=== PATIENT | male | born 1970 | race Caucasian/White ===

== ENCOUNTER 2018-11-21 14:38 | Emergency (ER) | payer MEDICAID ==
[~2018-11-21] VITALS: Ht 170.2 cm; Wt 99.8 kg
--- NOTE | 2018-11-21 14:44 | NUR ---
PATIENT AMBULATED TO BED 5 AT THIS TIME.
[2018-11-21 14:51] VITALS: BP 133/63
[2018-11-21] MEDS ORDERED: NACL 0.9% 1,000 ML IV ONE (15:21)
[2018-11-21] MEDS ORDERED: ONDANSETRON 4 MG/2 ML VIAL IVP ONE (15:25)
[2018-11-21] MEDS ORDERED: KETOROLAC 30 MG/ML VIAL IVP ONE (15:25)
[2018-11-21 15:26] VITALS: BP 104/76
[2018-11-21 15:54] LABS: BASOPHILS % (AUTO) 0.5 % (0.0-2.0); EOSINOPHILS # (AUTO) 0.1 K/uL (0-0.4); EOSINOPHILS % (AUTO) 2.3 % (0.0-4.0); HEMOGLOBIN 13.2 g/dL (12.0-18.0); LYMPHOCYTES # (AUTO) 2.1 K/uL (2.0-11.5); LYMPHOCYTES % (AUTO) 33.6 % (20.5-51.1); MEAN CORPUSCULAR HEMOGLOBIN 31 pg (27-31); MEAN CORPUSCULAR HGB CONC 34 g/dL (33-37); MEAN CORPUSCULAR VOLUME 91.2 fL (80-94); MONOCYTES # (AUTO) 0.7 K/uL (0.8-1.0); NEUTROPHILS # (AUTO) 3.3 K/uL (1.8-7.7); NEUTROPHILS % (AUTO) 52.6 % (42.2-75.2); PLATELET COUNT (AUTO) 175 K/uL (140-450); RED BLOOD CELL COUNT(AUTO) 4.27 MIL/uL (4.20-6.10); RED CELL DISTRIBUTION WIDTH 13.4 % (11.6-13.7); WHITE BLOOD COUNT (AUTO) 6.3 K/uL (4.8-10.8)
--- NOTE | 2018-11-21 16:02 | NUR ---
PT PRESENTS TO ED WITH C/O ABD PAIN X 2 DAYS. +NAUSEA, +DIARRHEA;DENIES VOMITING OR FEVER. PT STATES PAIN IS 8/10 AT THIS TIME.
[2018-11-21 16:08] LABS: PROTHROMBIN TIME 9.3 secs (10.8-13.4)
[2018-11-21 16:10] LABS: ALBUMIN 3.3 g/dL (3.4-5.0); ANION GAP 10.6 (8-16); CARBON DIOXIDE 30.1 mmol/L (21-32); CREATININE 1.4 mg/dL (0.7-1.3); POTASSIUM 3.7 mmol/L (3.5-5.1); TOTAL BILIRUBIN 0.3 mg/dL (0.0-1.0)
== END 2018-11-21 16:55 | disposition home or self-care (01) ==
LOC: MED 14:38
DX: K43.9 Ventral hernia without obstruction or gangrene (principal); N18.2 Chronic kidney disease, stage 2 (mild); Z90.49 Acquired absence of other specified parts of digestive tract; Z98.890 Other specified postprocedural states
CPT/HCPCS: 36415; 74176; 80053; 81002; 83690; 85025; 85610; 85730; 96374; 96375; 99284; J1885; J2405; J7030

== ENCOUNTER 2019-04-08 08:39 | Emergency (ER) | payer MEDICAID ==
[~2019-04-08] VITALS: Ht 167.6 cm; Wt 97.5 kg
--- NOTE | 2019-04-08 08:49 | NUR ---
Patient ambulated with teady gait to bed 8. Addendum: 04/08/19 at 0853 by MATTHEW Patient ambulated with steady gait to bed 8
[2019-04-08 08:51] VITALS: BP 121/84
--- NOTE | 2019-04-08 09:21 | NUR ---
48/M TO ED WITH NAUSEA/VOMTTING/DIARRHEA OVER THE LAST 2 DAYS AFTER EATING FILET MIGNON. PT REPORTS MULTIPLE EPISODES OF DIARRHEA AND CONSTANT NAUSEA. ABD IS FLAT, SOFT, NON TENDER. BOWEL SOUNDS ACTIVE X 4. HEALED, SURGICAL SCARS NOTED FROM HERNIA REPAIR AND COLOSTOMY BAG. NO DISTRESS NOTED. IN BED FOR MD VIVEROS.
[2019-04-08] MEDS ORDERED: KETOROLAC 30 MG/ML VIAL IVP ONE (09:40)
[2019-04-08] MEDS ORDERED: NACL 0.9% 1,000 ML IV ONE (09:40)
[2019-04-08] MEDS ORDERED: ONDANSETRON 4 MG/2 ML VIAL IVP ONE (09:40)
--- NOTE | 2019-04-08 09:45 | NUR ---
MEDICATED ORDERED. WILL REASSESS.
--- NOTE | 2019-04-08 10:08 | NUR ---
PT REPORTING RELIEF OF NAUSEA POST ZOFRAN ADMINISTRATION. REPORTS PAIN STILL AT 0/10 WITH TORADOL.
[2019-04-08 10:10] LABS: BASOPHILS % (AUTO) 0.3 % (0.0-2.0); EOSINOPHILS # (AUTO) 0.1 K/uL (0-0.4); EOSINOPHILS % (AUTO) 1.6 % (0.0-4.0); HEMATOCRIT 43.6 % (36-52); HEMOGLOBIN 14.5 g/dL (12.0-18.0); LYMPHOCYTES # (AUTO) 1.1 K/uL (2.0-11.5); LYMPHOCYTES % (AUTO) 22.2 % (20.5-51.1); MEAN CORPUSCULAR HEMOGLOBIN 31 pg (27-31); MEAN CORPUSCULAR HGB CONC 33 g/dL (33-37); MONOCYTES # (AUTO) 0.7 K/uL (0.8-1.0); MONOCYTES % (AUTO) 13.2 % (1.7-9.3); NEUTROPHILS # (AUTO) 3.2 K/uL (1.8-7.7); NEUTROPHILS % (AUTO) 62.7 % (42.2-75.2); PLATELET COUNT (AUTO) 165 K/uL (140-450); RED BLOOD CELL COUNT(AUTO) 4.69 MIL/uL (4.20-6.10); RED CELL DISTRIBUTION WIDTH 13.5 % (11.6-13.7); WHITE BLOOD COUNT (AUTO) 5.2 K/uL (4.8-10.8)
[2019-04-08 10:20] LABS: ANION GAP 11.5 (8-16); CARBON DIOXIDE 26.7 mmol/L (21-32); CREATININE 1.4 mg/dL (0.7-1.3); POTASSIUM 4.2 mmol/L (3.5-5.1)
[2019-04-08 10:26] LABS: ALBUMIN 3.6 g/dL (3.4-5.0); TOTAL BILIRUBIN 0.5 mg/dL (0.0-1.0)
[2019-04-08 11:30] VITALS: BP 135/71
--- NOTE | 2019-04-08 11:30 | NUR ---
Patient discharged with v/s stable. Written and verbal after care instructions given and explained. Patient alert, oriented and verbalized understanding of instructions. Ambulatory with steady gait. All questions addressed prior to discharge. ID band removed. Patient advised to follow up with PMD. Rx of JUANITA CASAREZ given. Patient educated on indication of medication including possible reaction and side effects. Opportunity to ask questions provided and answered.
== END 2019-04-08 11:30 | disposition home or self-care (01) ==
LOC: MED 08:39
DX: K52.9 Noninfective gastroenteritis and colitis, unspecified (principal); K56.7 Ileus, unspecified; Z98.890 Other specified postprocedural states; Z87.448 Personal history of other diseases of urinary system
CPT/HCPCS: 36415; 74022; 80053; 85025; 96361; 96374; 96375; 99284; J1885; J2405

== ENCOUNTER 2019-12-31 17:46 | Emergency (ER) | payer MEDICAID ==
[~2019-12-31] VITALS: Ht 167.6 cm; Wt 102.1 kg
[2019-12-31 17:48] VITALS: BP 127/70
--- NOTE | 2019-12-31 18:10 | NUR ---
PT AMBULATED TO ER BED 04
--- NOTE | 2019-12-31 18:15 | NUR ---
AT BEDSIDE EVALUATING PT.
[2019-12-31 18:25] VITALS: BP 127/70
[2019-12-31] MEDS ORDERED: ONDANSETRON 4 MG/2 ML VIAL IVP ONE (18:30)
[2019-12-31] MEDS ORDERED: NACL 0.9% 1,000 ML IV ONE (18:30)
--- NOTE | 2019-12-31 18:32 | NUR ---
C/O DIARRHEA X 2 DAYS AND C/O DIZZINESS, HEADACHE, BODY ACHES & FALL X YESTERDAY . DENIES N/V. BLOOD SUGAR 138 AT THIS TIME.PT AOX 4 , AFIBRILE , AMBULATORY WITH STEADY GAIT , MOIST MUCOUS MEMBRANE ,PINK PALPEBRAL CONJUNCTIVA , ANICTERIC SCLERA , SCE , ROUND SOFT ABDOMEN. MED HX: HERNIA
[2019-12-31 18:53] LABS: BASOPHILS % (AUTO) 0.6 % (0.0-2.0); EOSINOPHILS # (AUTO) 0.2 K/uL (0-0.4); EOSINOPHILS % (AUTO) 2.5 % (0.0-4.0); HEMATOCRIT 40.3 % (36-52); HEMOGLOBIN 13.2 g/dL (12.0-18.0); LYMPHOCYTES # (AUTO) 2.1 K/uL (2.0-11.5); MEAN CORPUSCULAR HEMOGLOBIN 31 pg (27-31); MEAN CORPUSCULAR HGB CONC 33 g/dL (33-37); MONOCYTES # (AUTO) 0.7 K/uL (0.8-1.0); MONOCYTES % (AUTO) 10.6 % (1.7-9.3); NEUTROPHILS # (AUTO) 3.3 K/uL (1.8-7.7); NEUTROPHILS % (AUTO) 52.3 % (42.2-75.2); PLATELET COUNT (AUTO) 176 K/uL (140-450); RED BLOOD CELL COUNT(AUTO) 4.33 MIL/uL (4.20-6.10); RED CELL DISTRIBUTION WIDTH 13.5 % (11.6-13.7); WHITE BLOOD COUNT (AUTO) 6.2 K/uL (4.8-10.8)
--- NOTE | 2019-12-31 19:10 | NUR ---
Pt report RECEIVED FROM AFRICA GERBER . Transfer of care at this time.
--- NOTE | 2019-12-31 19:10 | NUR ---
GAVE REPORT TO AFRICA MANTILLA WITH STABLE VS , 800 ML LEFT IN IV BAG. SIDE RAIL UP X1 AND LOCK AT LOWEST POSITION .
[2019-12-31 19:11] LABS: ALBUMIN 3.4 g/dL (3.4-5.0); ANION GAP 11.3 (8-16); ASPARTATE AMINOTRANSFERASE 19 U/L (15-37); CARBON DIOXIDE 31.2 mmol/L (21-32); CHLORIDE 104 mmol/L (98-107); CREATININE 1.4 mg/dL (0.6-1.3); GFR ARICAN-AMERICAN 70 mL/min (>90); GLUCOSE 97 mg/dL (74-106); POTASSIUM 3.5 mmol/L (3.5-5.1); SODIUM SERUM 143 mmol/L (136-145); TOTAL BILIRUBIN 0.4 mg/dL (0.0-1.0); UREA NITROGEN, BLOOD 11 mg/dL (7-18)
--- NOTE | 2019-12-31 19:23 | NUR ---
PT PROVIDED URINE SAMPLE
[2019-12-31 19:38] LABS: BARBITURATE, URINE NEGATIVE ng/ml (NEG <=200); BENZODIAZEPINE, URINE NEGATIVE ng/mL (NEG <=200); CANNABINOID, URINE NEGATIVE ng/mL (NEG <=50); COCAINE, URINE NEGATIVE ng/mL (NEG <=300); OPIATE, URINE NEGATIVE ng/mL (NEG <=2000); PHENCYCLIDINE SCREEN,URINE NEGATIVE ng/mL (NEG <=25)
--- NOTE | 2019-12-31 21:25 | NUR ---
Patient discharged with v/s stable. Written and verbal after care instructions given and explained. Patient verbalized understanding. Ambulatory with steady gait. All questions addressed prior to discharge. Advised to follow up with PMD.
== END 2019-12-31 21:25 | disposition home or self-care (01) ==
LOC: MED 17:46
DX: R42 Dizziness and giddiness (principal); F15.10 Other stimulant abuse, uncomplicated; E66.9 Obesity, unspecified; Z68.36 Body mass index [BMI] 36.0-36.9, adult; Z88.0 Allergy status to penicillin; Z98.890 Other specified postprocedural states
CPT/HCPCS: 36415; 80053; 80305; 82550; 84484; 85025; 93005; 96361; 96374; 99284; G0482; J2405; J7030

== ENCOUNTER 2023-04-12 10:12 | Emergency (ER) | payer MEDICAID ==
[~2023-04-12] VITALS: Ht 167.6 cm; Wt 96.6 kg
[2023-04-12 10:39] VITALS: BP 142/92; PULSE 85; RESP 18; TEMP 98.3; O2SAT 97
[2023-04-12] MEDS ORDERED: SUD30 PO (12:16)
[2023-04-12] MEDS ORDERED: BENZ200C4 PO (12:16)
[2023-04-12 12:50] VITALS: BP 135/80; PULSE 85; RESP 18; TEMP 98.3; O2SAT 99
[2023-04-12 13:29] LABS: FLU A ANTIGEN negative (NEGATIVE); FLU B ANTIGEN negative (NEGATIVE)
== END 2023-04-12 12:50 | disposition home or self-care (01) ==
LOC: MED 10:12
DX: J06.9 Acute upper respiratory infection, unspecified (principal); Z20.822 Contact with and (suspected) exposure to COVID-19; Z79.899 Other long term (current) drug therapy; Z88.0 Allergy status to penicillin
CPT/HCPCS: 99283

== ENCOUNTER 2023-07-21 09:53 | Emergency (ER) | payer OTHER, MEDICAID ==
[~2023-07-21] VITALS: Ht 167.6 cm; Wt 94.3 kg
[~2023-07-21 09:53] MED LIST: BENZ200C4 PO; SUD30 PO
[2023-07-21 10:04] VITALS: BP 144/87; PULSE 102; RESP 16; TEMP 98.1; O2SAT 96
[2023-07-21] MEDS: HYDROcodone/APAP 5/325 MG 1 TAB TAB PO ONE (10:39)
[2023-07-21 11:33] LABS: BASOPHILS % (AUTO) 0.6 % (0.0-2.0); EOSINOPHILS # (AUTO) 0.1 K/uL (0-0.4); EOSINOPHILS % (AUTO) 0.9 % (0.0-4.0); HEMOGLOBIN 13.9 g/dL (12.0-18.0); LYMPHOCYTES # (AUTO) 1.8 K/uL (2.0-11.5); LYMPHOCYTES % (AUTO) 25.5 % (20.5-51.1); MEAN CORPUSCULAR HEMOGLOBIN 31 pg (27-31); MEAN CORPUSCULAR HGB CONC 34 g/dL (33-37); MEAN CORPUSCULAR VOLUME 91.9 fL (80-94); MONOCYTES # (AUTO) 0.6 K/uL (0.8-1.0); MONOCYTES % (AUTO) 8.2 % (1.7-9.3); NEUTROPHILS # (AUTO) 4.6 K/uL (1.8-7.7); NEUTROPHILS % (AUTO) 64.8 % (42.2-75.2); PLATELET COUNT (AUTO) 171 K/uL (140-450); RED BLOOD CELL COUNT(AUTO) 4.47 MIL/uL (4.20-6.10); RED CELL DISTRIBUTION WIDTH 13.8 % (11.6-13.7); WHITE BLOOD COUNT (AUTO) 7.1 K/uL (4.8-10.8)
[2023-07-21 11:49] LABS: INR 0.96 (0.8-1.2); PROTHROMBIN TIME 10.1 secs (10.8-13.4)
[2023-07-21 11:53] LABS: ANION GAP 12.8 (8-16); CALCIUM 8.5 mg/dL (8.5-10.1); CARBON DIOXIDE 25.5 mmol/L (21-32); CREATININE 1.3 mg/dL (0.6-1.3); POTASSIUM 4.3 mmol/L (3.5-5.1)
[2023-07-21 11:56] LABS: ALBUMIN 3.8 g/dL (3.4-5.0); BILIRUBIN,DIRECT 0.1 mg/dL (0.0-0.3); TOTAL BILIRUBIN 0.8 mg/dL (0.0-1.0); TOTAL PROTEIN, SERUM 7.3 g/dL (6.4-8.2)
[2023-07-21] MEDS ORDERED: NAPR-1559 PO (13:55)
[2023-07-21 14:01] VITALS: BP 125/72; PULSE 99; RESP 16; TEMP 98; O2SAT 97
== END 2023-07-21 14:00 | disposition home or self-care (01) ==
LOC: MED 09:53
DX: K43.9 Ventral hernia without obstruction or gangrene (principal); Z88.0 Allergy status to penicillin; Z79.899 Other long term (current) drug therapy
CPT/HCPCS: 36415; 80048; 80076; 83690; 85025; 85610; 99284